=== PATIENT | male | born 1985 | race African-American/Black ===

== ENCOUNTER 2021-05-21 09:00 | Emergency (ER) | payer SELFPAY ==
[2021-05-21 21:53] LABS: SARS-CoV-2 PCR by NAA DETECTED (NotDetected)
== END 2021-05-21 09:57 | disposition home or self-care (01) ==
LOC: BURERS 09:00
DX: U07.1 COVID-19 (principal)
CPT/HCPCS: 99284; U0003; U0005

== ENCOUNTER 2022-03-18 19:57 | Emergency (ER) | payer SELFPAY ==
[2022-03-18 20:57] LABS: #Basophils 0.3 thou/uL (0.0-0.2); #Lymphocytes 2.6 thou/uL (1.20-3.40); #Neutrophils 7.1 thou/uL (1.40-6.50); %Basophils 2.3 % (0.0-1.0); %Eosinophils 0.2 % (0.0-10.0); %Lymphocytes 23.9 % (21.0-51.0); %Monocytes 9.1 % (0.0-10.0); %Neutrophils 64.5 % (42.0-75.0); Hemoglobin 16.5 g/dL (14.0-18.0); Mean Corpuscular HGB CONC 34.7 g/dL (32.0-36.0); Mean Corpuscular Hemoglobin 33.3 pg (27.0-31.0); Mean Platelet Volume 9.5 fL (7.4-10.4); Platelet Count 129 thou/uL (130-400); RBC Distribution Width 11.3 % (11.5-14.5); Red Blood Cell (RBC) Count 4.96 mill/uL (4.70-6.10)
[2022-03-18 21:15] LABS: ALT (SGPT) 13 U/L (8-55); AST (SGOT) 16 U/L (5-34); Albumin 4.4 g/dL (3.5-5.0); Alkaline Phosphatase 58 U/L (40-110); Anion Gap 17 mmol/L (10-20); BUN (Urea Nitrogen) 7 mg/dL (8.9-20.6); Bilirubin, Total 0.5 mg/dL (0.2-1.2); Calc. Creatinine Clearance 0 mL/min (70-130); Calcium 9.4 mg/dL (7.8-10.44); Carbon Dioxide 23 mmol/L (22-29); Chloride 108 mmol/L (98-107); Globulin 3.5 g/dL (2.4-3.5); Glucose 94 mg/dL (70-105); Potassium 3.6 mmol/L (3.5-5.1); Protein, Total 7.9 g/dL (6.0-8.3); Prothrombin Time 13.6 sec (12.0-14.7); Sodium 144 mmol/L (136-145)
[2022-03-18] MEDS ORDERED: Lidocaine 1% w/Epinephrine 1:100K 20 ML VIAL ONE (22:02)
[2022-03-18] MEDS ORDERED: Lidocaine 1% PF 5 ML VIAL ONE (22:02)
== END 2022-03-18 22:52 | disposition home or self-care (01) ==
LOC: BURERS 19:57
DX: L02.31 Cutaneous abscess of buttock (principal); F17.210 Nicotine dependence, cigarettes, uncomplicated
CPT/HCPCS: 10060; 72192; 80053; 85025; 85610

== ENCOUNTER 2024-04-18 12:42 | Emergency (ER) | payer OTHER, SELFPAY | END 2024-04-18 13:04 | disposition home or self-care (01) | LOC: BURERS 12:42 | DX: I10 Essential (primary) hypertension (principal); F17.210 Nicotine dependence, cigarettes, uncomplicated | CPT/HCPCS: 99283 ==

== ENCOUNTER 2024-06-26 14:37 | Emergency (ER) | payer OTHER ==
[2024-06-26] MEDS ORDERED: Acetaminophen 500 MG TAB ONE (15:04)
== END 2024-06-26 15:20 | disposition home or self-care (01) ==
LOC: BURERS 14:37
DX: H00.012 Hordeolum externum right lower eyelid (principal); F17.210 Nicotine dependence, cigarettes, uncomplicated
CPT/HCPCS: 99283

== ENCOUNTER 2024-09-29 11:00 | Emergency (ER) | payer OTHER ==
[~2024-09-29 11:00] MED LIST: Iopamidol 370 76% 100 ML VIAL ONE
[2024-09-29 12:03] LABS: #Basophils 0.1 thou/uL (0.0-0.2); #Lymphocytes 1.8 thou/uL (1.20-3.40); #Monocytes 0.5 thou/uL (0.11-0.59); #Neutrophils 3.2 thou/uL (1.40-6.50); %Basophils 1.4 % (0.0-1.0); %Eosinophils 0.1 % (0.0-10.0); %Lymphocytes 32.8 % (21.0-51.0); %Monocytes 8.2 % (0.0-10.0); %Neutrophils 57.6 % (42.0-75.0); Hematocrit 42.3 % (42.0-52.0); Hemoglobin 14.4 g/dL (14.0-18.0); Mean Corpuscular Hemoglobin 32.1 pg (27.0-31.0); Mean Corpuscular Volume 94.4 fl (78.0-98.0); Mean Platelet Volume 8.5 fL (7.4-10.4); Platelet Count 132 10x3/uL (130-400); RBC Distribution Width 11.6 % (11.5-14.5); Red Blood Cell (RBC) Count 4.48 mill/uL (4.70-6.10); White Blood Cell (WBC) Count 5.5 10x3/uL (4.8-10.8)
[2024-09-29 12:13] LABS: ALT (SGPT) 22 U/L (8-55); AST (SGOT) 19 U/L (5-34); Albumin 3.9 g/dL (3.5-5.0); Alkaline Phosphatase 83 U/L (40-110); Anion Gap 12 mmol/L (10-20); BUN (Urea Nitrogen) 7 mg/dL (8.9-20.6); Bilirubin, Total 0.5 mg/dL (0.2-1.2); Calc. Creatinine Clearance 0 mL/min (70-130); Calcium 9.3 mg/dL (7.8-10.44); Carbon Dioxide 24 mmol/L (22-29); Chloride 109 mmol/L (98-107); Estimated GFR 89; Globulin 2.8 g/dL (2.4-3.5); Glucose 86 mg/dL (70-105); Lipase 18 U/L (8-78); Potassium 3.7 mmol/L (3.5-5.1); Protein, Total 6.7 g/dL (6.0-8.3); Sodium 141 mmol/L (136-145)
== END 2024-09-29 13:56 | disposition home or self-care (01) ==
LOC: BURERS 11:00
DX: A09 Infectious gastroenteritis and colitis, unspecified (principal); F17.210 Nicotine dependence, cigarettes, uncomplicated
CPT/HCPCS: 74177; 80053; 83605; 83690; 85025; Q9967